=== PATIENT | female | born 1950 | race African-American/Black ===

== ENCOUNTER 2018-06-26 10:20 | Emergency (ER) | payer MEDICARE, MEDICAID ==
[~2018-06-26] VITALS: Ht 170.2 cm; Wt 96.0 kg
[~2018-06-26 10:20] MED LIST: BENA40TA9 PO; GABA-529 PO; HYDR-4009 PO; LEVO25TA7 PO; NITR0.4T49 SL; UNKNOWN MEDS; ZOLP5TAB2 PO
[2018-06-26] MEDS ORDERED: MORPHINE SULFATE 4 MG/ML CPJ (NOT FOR IM USE) IV STA (10:56)
[2018-06-26] MEDS ORDERED: ONDANSETRON HCL 4MG/2ML VIAL IV STA (10:56)
[2018-06-26 11:45] LABS: BASOPHILS % 0.8 % (0.0-2.0); EOSINOPHILS % 1.3 % (0.0-5.0); HEMATOCRIT. 44.7 % (36.0-48.0); HEMOGLOBIN. 14.6 g/dL (12.0-16.0); LYMPHOCYTES % 23.3 % (20.0-50.0); MEAN CORPUSCULAR HEMOGLOBIN 29.4 pg (28.0-32.0); MEAN PLATELET VOLUME 9.5 fl (7.4-10.4); MONOCYTES % 5.5 % (2.0-8.0); NEUTROPHILS % 69.1 % (40.0-76.0); PLATELET 202 x1000/uL (130-400); RED BLOOD CELL COUNT 4.96 mill/uL (4.2-5.4); RED CELL DISTRIBUTION WIDTH 14.6 % (11.6-14.6)
[2018-06-26 11:48] LABS: CHLORIDE 110 mEq/L (98-107)
[2018-06-26 11:53] LABS: ETHANOL BLOOD < 10 mg/dL
[2018-06-26 12:09] LABS: D-DIMER 0.95 mg/L FEU (<0.50); PARTIAL THROMBOPLASTIN TIME 29.2 sec (23.4-31.0); PROTHROMBIN TIME 10.6 sec (9.4-11.6)
[2018-06-26] MEDS ORDERED: HYDROCODONE/ACETAMINOPHEN 5/325MG TABLET PO ONE (13:00)
[2018-06-26 13:28] LABS: CLARITY URINE CLEAR (CLEAR); COLOR URINE YELLOW (YELLOW); KETONES URINE NEGATIVE (NEGATIVE); LEUKOCYTE ESTERASE URINE NEGATIVE (NEGATIVE); NITRITE URINE NEGATIVE (NEGATIVE); OCCULT BLOOD URINE NEGATIVE (NEGATIVE); PROTEIN URINE NEGATIVE (NEGATIVE); SPECIFIC GRAVITY URINE 1.018 (1.005-1.030); UROBILINOGEN URINE 0.2 E.U./dL (0.2-1.0)
[2018-06-26 13:56] VITALS: BP 165/89
[2018-06-26 14:06] LABS: *AMPHETAMINES SCREEN URINE NEGATIVE (NEGATIVE); *BARBITURATES SCREEN URINE NEGATIVE (NEGATIVE); *BENZODIAZEPINES SCREEN URINE NEGATIVE (NEGATIVE); *COCAINE SCREEN URINE NEGATIVE (NEGATIVE); CANNABINOID URINE SCREEN NEGATIVE (NEGATIVE); METHADONE URINE SCREEN NEGATIVE (NEGATIVE); OPIATES URINE SCREEN PRESUMTIVE POSITIVE (NEGATIVE)
[2018-06-26 14:07] LABS: PHENCYCLIDINE URINE SCREEN NEGATIVE (NEGATIVE)
== END 2018-06-26 13:58 | disposition home or self-care (01) ==
LOC: ER 12:24 → CANBEDREQ 13:43 → ER 13:58
DX: M48.061 Spinal stenosis, lumbar region without neurogenic claudication (principal); Z72.0 Tobacco use; E11.9 Type 2 diabetes mellitus without complications; I10 Essential (primary) hypertension; Z85.43 Personal history of malignant neoplasm of ovary; Z85.850 Personal history of malignant neoplasm of thyroid; Z98.890 Other specified postprocedural states
CPT/HCPCS: 36415; 71045; 72148; 80053; 80305; 81003; 83880; 84484; 85025; 85379; 85610; 85730; 93005; 93970; 99285; G0482

== ENCOUNTER 2024-01-05 11:46 | Emergency (ER) | payer BC, MEDICAID ==
[~2024-01-05] VITALS: Ht 170.2 cm; Wt 95.3 kg
[~2024-01-05 11:46] MED LIST changes: -BENA40TA9 PO; +BENA40TA91 PO
[2024-01-05 12:00] VITALS: O2SAT 100
[2024-01-05] MEDS: ACETAMINOPHEN 325MG TABLET PO STA (14:00)
[2024-01-05 16:24] VITALS: BP 168/98; PULSE 60; RESP 16; TEMP 98.2
== END 2024-01-05 16:26 | disposition home or self-care (01) ==
LOC: ER 11:46
DX: S00.93XA Contusion of unspecified part of head, initial encounter (principal); M54.9 Dorsalgia, unspecified; M54.2 Cervicalgia; I10 Essential (primary) hypertension; J44.1 Chronic obstructive pulmonary disease with (acute) exacerbation; E11.9 Type 2 diabetes mellitus without complications; Z86.39 Personal history of other endocrine, nutritional and metabolic disease; V03.10XA Pedestrian on foot injured in collision with car, pick-up truck or van in traffic accident, initial encounter; X58.XXXA Exposure to other specified factors, initial encounter; Y93.89 Activity, other specified; Y92.89 Other specified places as the place of occurrence of the external cause; Y99.8 Other external cause status
CPT/HCPCS: 72100; 99284

== ENCOUNTER 2025-08-27 11:18 | Emergency (ER) | payer BC, MEDICAID ==
[~2025-08-27] VITALS: Ht 170.2 cm; Wt 91.0 kg
[2025-08-27] MEDS ORDERED: POLYETHYLENE GLYCOL 3350 (17GM) 1 DOSE PACK PO ONE (13:15)
[2025-08-27] MEDS: MINERAL OIL ENEMA 133ML PR ONE (13:30)
[2025-08-27] MEDS: SENNOSIDES/DOCUSATE SOD 8.6/50MG TABLET PO PRN (13:53)
[2025-08-27] MEDS: BISACODYL 5MG TABLET PO PRN (13:53)
[2025-08-27] MEDS: POLYETHYLENE GLYCOL 3350 (17GM) 1 DOSE PACK PO SCH (13:54)
[2025-08-27] MEDS ORDERED: MAGN296S70 MT (14:38)
[2025-08-27] MEDS ORDERED: DOCU-155 MT (14:38)
[2025-08-27] MEDS ORDERED: SENN8.6T21 MT (14:38)
[2025-08-27] MEDS ORDERED: POLY119P2 MT (14:38)
[2025-08-27 14:56] VITALS: BP 168/94; PULSE 76; RESP 18; TEMP 36.8; O2SAT 98
== END 2025-08-27 14:58 | disposition home or self-care (01) ==
LOC: ER 11:18
DX: K59.00 Constipation, unspecified (principal); E11.9 Type 2 diabetes mellitus without complications; I10 Essential (primary) hypertension; Z79.890 Hormone replacement therapy; J44.89 Other specified chronic obstructive pulmonary disease; Z79.899 Other long term (current) drug therapy; Z90.49 Acquired absence of other specified parts of digestive tract
CPT/HCPCS: 99284

== ENCOUNTER 2025-09-03 10:58 | Emergency (ER) | payer BC, MEDICAID ==
[~2025-09-03] VITALS: Ht 170.2 cm; Wt 96.0 kg
[~2025-09-03 10:58] MED LIST changes: +DOCU-155 MT; +MAGN296S70 MT; +POLY119P2 MT; +SENN8.6T21 MT
[2025-09-03 11:10] VITALS: TEMP 36.9; O2SAT 98
[2025-09-03] MEDS ORDERED: NA PHOS,M-B/NA PHOS,DI-BA ENEMA 118ML PR ONE (13:15)
[2025-09-03] MEDS ORDERED: POLYETHYLENE GLYCOL 3350 (17GM) 1 DOSE PACK PO ONE (13:15)
[2025-09-03] MEDS ORDERED: LACT10SO81 MT (14:07)
[2025-09-03] MEDS ORDERED: PSYL0.4C2 MT (14:07)
[2025-09-03] MEDS ORDERED: SENN-139 MT (14:07)
[2025-09-03] MEDS ORDERED: HYDR30CR80 TP (14:11)
[2025-09-03] MEDS: SENNOSIDES/DOCUSATE SOD 8.6/50MG TABLET PO PRN (15:19)
[2025-09-03] MEDS: POLYETHYLENE GLYCOL 3350 (17GM) 1 DOSE PACK PO SCH (15:20)
[2025-09-03] MEDS: NA PHOS,M-B/NA PHOS,DI-BA ENEMA 118ML PR SCH (15:20)
[2025-09-03 16:34] VITALS: PULSE 72; RESP 20; O2SAT 97
[2025-09-03 17:32] VITALS: BP 199/102
[2025-09-03] MEDS: HYDRALAZINE HCL 25MG TABLET PO ONE (17:33)
[2025-09-03 19:50] LABS: BASOPHILS % 0.4 % (0.0-2.0); EOSINOPHILS % 0.8 % (0.0-5.0); HEMATOCRIT. 43.8 % (36.0-48.0); HEMOGLOBIN. 14.0 g/dL (12.0-16.0); LYMPHOCYTES % 16.4 % (20.0-50.0); MEAN PLATELET VOLUME 9.4 fl (7.4-10.4); MONOCYTES % 6.0 % (2.0-8.0); NEUTROPHILS % 76.4 % (40.0-76.0); PLATELET 169 x1000/uL (130-400); RED BLOOD CELL COUNT 4.70 mill/uL (4.2-5.4); RED CELL DISTRIBUTION WIDTH 15.2 % (11.6-14.6)
[2025-09-03 20:05] LABS: CREATININE 1.1 mg/dL (0.6-1.0); UREA NITROGEN BLOOD 16.0 mg/dL (9-23)
== END 2025-09-03 20:30 | disposition left against medical advice (07) ==
LOC: ER 10:58
DX: K59.00 Constipation, unspecified (principal); K64.4 Residual hemorrhoidal skin tags; E11.9 Type 2 diabetes mellitus without complications; H40.9 Unspecified glaucoma; I10 Essential (primary) hypertension; J44.89 Other specified chronic obstructive pulmonary disease; M19.90 Unspecified osteoarthritis, unspecified site; Z79.890 Hormone replacement therapy; Z79.899 Other long term (current) drug therapy; Z90.49 Acquired absence of other specified parts of digestive tract
CPT/HCPCS: 36415; 80048; 85025; 99284